=== PATIENT | female | born 1990 | race Caucasian/White ===

== ENCOUNTER 2017-03-25 18:38 | Emergency (ER) | payer SELFPAY ==
[2017-03-25] MEDS ORDERED: ONDANSETRON 4 MG TAB.RAPDIS PO ONE (18:53)
--- NOTE | 2017-03-25 19:07 | ER Document Report ---
ED Medical Screen (RME) - General Chief Complaint: Vaginal Bleeding Stated Complaint: VAGINAL BLEEDING Time Seen by Provider: 03/25/17 18:50 TRAVEL OUTSIDE OF THE [place] IN LAST 30 DAYS: No - HPI Notes: 03/25/17 19:06 Vaginal bleeding vomiting passing out - Related Data Allergies/Adverse Reactions: iodine Allergy (Verified 03/25/17 18:43) latex Allergy (Verified 03/25/17 18:43) Past Medical History Renal/ Medical History: Denies: Hx Peritoneal Dialysis Review of Systems - Review of Systems Gastrointestinal: Nausea, Vomiting -: Yes All other systems reviewed and negative Physical Exam - Vital signs Vitals: Temp Pulse Resp BP Pulse Ox 98.7 F 95 16 124/80 98 03/25/17 18:44 03/25/17 18:44 03/25/17 18:44 03/25/17 18:44 03/25/17 18:44 - Respiratory Respiratory status: No respiratory distress Chest status: Nontender Breath sounds: Normal Chest palpation: Normal Course - Vital Signs Vital signs: Temp Pulse Resp BP Pulse Ox 98.7 F 95 16 124/80 98 03/25/17 18:44 03/25/17 18:44 03/25/17 18:44 03/25/17 18:44 03/25/17 18:44
[2017-03-25 19:16] LABS: ABSOLUTE BASOPHILS # (AUTO) 0.1 10^3/uL (0.0-0.2); ABSOLUTE EOSINOPHILS # (AUTO) 0.3 10^3/uL (0.0-0.6); ABSOLUTE LYMPHOCYTES (AUTO) 2.1 10^3/uL (0.5-4.7); ABSOLUTE MONOCYTES (AUTO) 0.6 10^3/uL (0.1-1.4); ABSOLUTE NEUT (AUTO) 6.6 10^3/uL (1.7-8.2); BASOPHILS % (AUTO) 0.7 % (0-2); EOSINOPHILS % (AUTO) 3.5 % (0-6); HEMOGLOBIN 11.3 g/dL (12.0-15.5); HGB HCT DIFFERENCE -2.1; LYMPHOCYTES % (AUTO) 21.3 % (13-45); MEAN CORPUSCULAR HEMOGLOBIN 21.4 pg (27.0-33.4); MEAN CORPUSCULAR HGB CONC 31.4 g/dL (32.0-36.0); MEAN CORPUSCULAR VOLUME 68 fl (80-97); MONOCYTES % (AUTO) 6.5 % (3-13); RED BLOOD COUNT 5.28 10^6/uL (3.72-5.28); WHITE BLOOD COUNT 9.7 10^3/uL (4.0-10.5)
[2017-03-25] MEDS ORDERED: NORMAL SALINE 1000 ML 1,000 ML IV ONE (19:18)
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
[2017-03-25 19:38] LABS: ALANINE AMINOTRANSFERASE 44 U/L (9-52); ALBUMIN 4.2 g/dL (3.5-5.0); ALKALINE PHOSPHATASE 87 U/L (38-126); ANION GAP 9 (5-19); ASPARTATE AMINO TRANSFERASE 21 U/L (14-36); BILIRUBIN,DIRECT 0.4 mg/dL (0.0-0.4); BILIRUBIN,TOTAL 0.5 mg/dL (0.2-1.3); BLOOD UREA NITROGEN 13 mg/dL (7-20); CALCIUM 9.7 mg/dL (8.4-10.2); CARBON DIOXIDE 25 mmol/L (22-30); CHLORIDE 107 mmol/L (98-107); CREATININE RESULT 0.86 mg/dL (0.52-1.25); GLUCOSE 93 mg/dL (75-110); LIPASE 47.3 U/L (23-300); POTASSIUM 4.3 mmol/L (3.6-5.0); SODIUM 141.3 mmol/L (137-145); TOTAL PROTEIN 7.5 g/dL (6.3-8.2)
[2017-03-25 22:50] VITALS: BP 124/69
== END 2017-03-25 22:49 | disposition home or self-care (01) ==
LOC: ER 18:38
DX: N93.9 Abnormal uterine and vaginal bleeding, unspecified (principal); R10.2 Pelvic and perineal pain; R11.2 Nausea with vomiting, unspecified; Z91.040 Latex allergy status; Z87.42 Personal history of other diseases of the female genital tract; Z90.721 Acquired absence of ovaries, unilateral
CPT/HCPCS: 99284; 86900; 86901; 36415; 84702; 83690; 85025; 80053; S0119; J7030

== ENCOUNTER 2017-11-04 20:08 | Emergency (ER) | payer SELFPAY ==
[2017-11-04 20:58] LABS: ABSOLUTE BASOPHILS # (AUTO) 0.1 10^3/uL (0.0-0.2); ABSOLUTE EOSINOPHILS # (AUTO) 0.3 10^3/uL (0.0-0.6); ABSOLUTE LYMPHOCYTES (AUTO) 2.8 10^3/uL (0.5-4.7); ABSOLUTE MONOCYTES (AUTO) 0.6 10^3/uL (0.1-1.4); ABSOLUTE NEUT (AUTO) 8.8 10^3/uL (1.7-8.2); BASOPHILS % (AUTO) 0.9 % (0-2); EOSINOPHILS % (AUTO) 2.1 % (0-6); HEMATOCRIT 38.4 % (36.0-47.0); HEMOGLOBIN 12.5 g/dL (12.0-15.5); HGB HCT DIFFERENCE -0.9; MEAN CORPUSCULAR HGB CONC 32.6 g/dL (32.0-36.0); MEAN CORPUSCULAR VOLUME 71 fl (80-97); RED BLOOD COUNT 5.43 10^6/uL (3.72-5.28); RED CELL DISTRIBUTION WIDTH 17.8 % (11.5-14.0); WHITE BLOOD COUNT 12.7 10^3/uL (4.0-10.5)
[2017-11-04] MEDS ORDERED: MORPHINE SULFATE 10 MG/ML INJ IV PRN (21:10)
[2017-11-04] MEDS ORDERED: KETOROLAC TROMETHAMINE INJ/PF 30 MG/1 ML SDV IV ONE (21:10)
--- NOTE | 2017-11-04 21:12 | ER Document Report ---
ED General - General Chief Complaint: Abdominal Pain Stated Complaint: ABDOMINAL PAIN Time Seen by Provider: 11/04/17 20:34 Notes: Patient is a 27-year-old female without past medical history, a prior , who presents with 2 hours of right lower abdominal pain as well as right flank pain. Patient states that the symptoms were acute in onset and have been unchanged since that time. He describes the pain as a constant, stabbing, throbbing pain to her lower abdomen and right flank. Nothing improves or worsens the pain. She denies any history of similar symptoms in the past. She has not seen her primary doctor regarding today's concerns. She denies any associated dysuria, fever, vaginal bleeding, vaginal discharge, melena, hematochezia, vomiting, hematemesis, chest pain, shortness of breath, or pleuritic pain. TRAVEL OUTSIDE OF THE [place] IN LAST 30 DAYS: No - Related Data Allergies/Adverse Reactions: iodine Allergy (Verified 11/04/17 20:08) latex Allergy (Verified 11/04/17 20:08) Past Medical History - General Information source: Patient - Social History Smoking Status: Never Smoker Frequency of alcohol use: None Drug Abuse: None Lives with: Spouse/Significant other Family History: CAD, CVA, DM, Hyperlipidemia, Hypertension, Malignancy Patient has suicidal ideation: No Patient has homicidal ideation: No Renal/ Medical History: Reports: Hx Ovarian Cysts. Denies: Hx Peritoneal Dialysis GI Medical History: Reports: Hx Ulcer, Hx Colonoscopy, Hx Endoscopy Musculoskeltal Medical History: Reports Hx Musculoskeletal Deformity, Reports Hx Musculoskeletal Trauma Traumatic Medical History: Reports: Hx Fractures - Clavicle ankle Past Surgical History: Reports: Hx Section, Hx Dilation and Curettage, Hx Genitourinary Surgery - Ovarian cyst removal and partial removal of left ovary, Hx Tonsillectomy - and adenoids - Immunizations Hx Diphtheria, Pertussis, Tetanus Vaccination: Yes Review of Systems - Review of Systems Notes: Constitutional: Negative for fever. HENT: Negative for sore throat. Eyes: Negative for visual changes. Cardiovascular: Negative for chest pain. Respiratory: Negative for shortness of breath. Gastrointestinal: Positive for abdominal pain and nausea Genitourinary: Negative for dysuria. Musculoskeletal: Negative for back pain. Skin: Negative for rash. Neurological: Negative for headaches, weakness or numbness. 10 point ROS negative except as marked above and in HPI. Physical Exam - Vital signs Vitals: Resp Pulse Ox 20 100 11/04/17 20:30 11/04/17 20:30 Interpretation: Normal Notes: PHYSICAL EXAMINATION: GENERAL: Appears mildly uncomfortable but no acute distress HEAD: Atraumatic, normocephalic. EYES: Pupils equal round and reactive to light, extraocular movements intact, sclera anicteric, conjunctiva are normal. ENT: nares patent, oropharynx clear without exudates. Moderately dry mucous membranes. NECK: Normal range of motion, supple without lymphadenopathy LUNGS: Breath sounds clear to auscultation bilaterally and equal. No wheezes rales or rhonchi. HEART: Regular tachycardia without murmurs ABDOMEN: Soft, right lower quadrant as well as right adnexal and suprapubic abdominal tenderness to palpation without rebound or guarding otherwise no localized tenderness, normoactive bowel sounds. No guarding, no rebound. No masses appreciated. : Scant amount of clear vaginal discharge. No cervical motion tenderness. Slight right adnexal tenderness. EXTREMITIES: Normal range of motion, no pitting or edema. No cyanosis. NEUROLOGICAL: No focal neurological deficits. Moves all extremities spontaneously and on command. PSYCH: Slightly anxious SKIN: Warm, Dry, normal turgor, no rashes or lesions noted. Course - Re-evaluation Re-evalutation: 11/04/17 21:11 Patient presents with tachycardia, right flank pain and right lower abdominal pain that is been present for the past 2 hours. Patient's initial heart was markedly elevated at 156 although has improved with pain control. She also appeared somewhat clinically dehydrated on examination. She denied any chest pain, pleuritic pain, dyspnea, or any symptoms to suggest an acute pulmonary embolus. She reports her pain is entirely in her role right lower abdomen as well as her right flank. Differential diagnosis includes acute pyelonephritis of the acuity of onset is atypical for this diagnosis, possible nephrolithiasis although again patient has focal tenderness on palpation of the abdomen which is also atypical for this diagnosis. Ovarian torsion is also in the differential but seems quite unlikely given the dominance of her right flank tenderness. Will proceed with pain control, labs, CT abdomen pelvis with IV contrast and reassess 11/04/17 23:48 CT abdomen pelvis is unremarkable without any evidence of an acute appendicitis , nephrolithiasis, pancreatitis, or any evidence of ovarian inflammation or swelling. Patient's pain has significantly improved. For her improved coming to the upper 90s to low 100s. 11/05/17 00:56 Transvaginal ultrasound was obtained CT abdomen pelvis was unremarkable and patient continued to have lower abdominal pain. This remains unremarkable without any evidence of torsion, cystic masses, or any additional acute findings. Pelvic examination does not show any evidence of cervical motion tenderness to suggest an acute pelvic inflammatory disease. Patient's heart rate has significantly improved now resting between 85 and 88. At this time I have explained the patient at length that the exact etiology of her presentation is uncertain to me at this time. However based on her reassuring evaluation including labs, CT abdomen and pelvis with IV contrast, transvaginal ultrasound, pelvic examination was swabs, and multiple repeated physical examinations I do not believe there is any acute life-threatening etiology to her presentation today particularly given normalization of her vitals, resolution of her pain, and her overall well appearance. I have also explained the patient that given we do not have a clear diagnosis for her presentation today it is critical that she follow-up with her primary care doctor for recheck of her abdomen within the next 24-48 hours. I have also emphasized the significant importance of coming back to the emergency department should she have any new or worsening symptoms again given the uncertainty of the cause of her initial presentation. The patient has verbalized understanding of this and the need to return to the emergency department should anything worsen as well as the need for outpatient follow-up. - Vital Signs Vital signs: Temp Pulse Resp BP Pulse Ox 14 103/68 100 11/05/17 00:33 11/05/17 00:33 11/05/17 00:33 - Laboratory Result Diagrams: 11/04/17 20:36 11/04/17 20:36 Laboratory results interpreted by me: 11/04/17 11/04/17 11/04/17 20:36 20:36 22:28 WBC 12.7 H RBC 5.43 H MCV 71 L MCH 23.0 L RDW 17.8 H Absolute Neutrophils 8.8 H Total Bilirubin 0.1 L Urine Ketones TRACE H - Diagnostic Test Radiology reviewed: Reports reviewed Discharge - Discharge Clinical Impression: Lower abdominal pain, Sinus tachycardia, Right flank pain Condition: Good Disposition: HOME, SELF-CARE Additional Instructions: You have been seen in the Emergency Department (ED) for abdominal pain. Your evaluation did not identify a clear cause of your symptoms but was generally reassuring. Your ultrasound, CT scan, labs, and urine are all normal. Your initial high heart rate improved with IV fluids and pain control. Please follow-up with your primary doctor in the next 24-40 hours for reassessment of your abdomen. Return to the ED if your abdominal pain worsens or fails to improve, you develop bloody vomiting, bloody diarrhea, you are unable to tolerate fluids due to vomiting, fever greater than 101, or other symptoms that concern you.
[2017-11-04 21:17] LABS: ALANINE AMINOTRANSFERASE 31 U/L (9-52); ALBUMIN 4.6 g/dL (3.5-5.0); ALKALINE PHOSPHATASE 99 U/L (38-126); ANION GAP 14 (5-19); ASPARTATE AMINO TRANSFERASE 20 U/L (14-36); BILIRUBIN,DIRECT 0.1 mg/dL (0.0-0.4); BILIRUBIN,TOTAL 0.1 mg/dL (0.2-1.3); BLOOD UREA NITROGEN 13 mg/dL (7-20); CALCIUM 9.9 mg/dL (8.4-10.2); CARBON DIOXIDE 25 mmol/L (22-30); CHLORIDE 103 mmol/L (98-107); CREATININE RESULT 0.91 mg/dL (0.52-1.25); GLUCOSE 91 mg/dL (75-110); LIPASE 44.8 U/L (23-300); POTASSIUM 4.1 mmol/L (3.6-5.0); SODIUM 142.4 mmol/L (137-145); TOTAL PROTEIN 7.9 g/dL (6.3-8.2)
[2017-11-04] MEDS ORDERED: DIPHENHYDRAMINE HCL 50 MG/ML VIAL IV ONE (21:38)
[2017-11-04 22:58] LABS: APPEARANCE,URINE SLIGHTLY-CLOUDY; BILIRUBIN,URINE NEGATIVE (NEGATIVE); GLUCOSE, URINE NEGATIVE (NEGATIVE); KETONES,URINE TRACE mg/dL (NEGATIVE); LEUKOCYTE ESTERASE,URINE NEGATIVE (NEGATIVE); NITRITE,URINE NEGATIVE (NEGATIVE); PROTEIN,URINE NEGATIVE (NEGATIVE); URINE SPECIFIC GRAVITY 1.032; UROBILINOGEN,URINE NEGATIVE mg/dL (<2.0)
[2017-11-04] MEDS ORDERED: NORMAL SALINE 1000 ML 1,000 ML IV ONE ×2 (22:59→23:20)
--- NOTE | 2017-11-04 23:26 | RADIOLOGY REPORT (SQ) ---
EXAM DESCRIPTION: CT ABD/PELVIS WITH IV ONLY CLINICAL HISTORY: 27 years Female, right flank pain, rlq pain COMPARISON: None. TECHNIQUE: 100 mL Isovue-370 IV contrast. This exam was performed according to our departmental dose-optimization program, which includes automated exposure control, adjustment of the mA and/or kV according to patient size and/or use of iterative reconstruction technique. FINDINGS: No acute findings. No significant free fluid. Normal appendix. No bowel obstruction. No hydronephrosis-hydroureter. Inferior chest, liver, gallbladder, pancreas, spleen, renal system, adrenals, gastrointestinal tract, pelvic organs, lymphatics, vasculature, and musculoskeleton appear otherwise unremarkable. IMPRESSION: Normal CT of the abdomen and pelvis.
--- NOTE | 2017-11-05 00:51 | RADIOLOGY REPORT (SQ) ---
EXAM DESCRIPTION: U/S NON OB PEL TV W/DOPPLER CLINICAL HISTORY: 27 years, Female, lower pelvic pain, tachycardia COMPARISON: None. TECHNIQUE: Transvaginal. LIMITATIONS: None. FINDINGS: 10 cm uterus with likely related scar, 1.6 cm endometrial stripe thickness, 3.2 cm cervical length with nabothian cysts, 2.6 cm right ovary, and 3.3 cm left ovary appear otherwise normal size, shape, echotexture, and vascularity. 2.2 cm cystic component of the left ovary is within normal limits; no follow-up imaging recommended (based on Best Practice Guidelines). No significant free fluid. IMPRESSION: No acute findings. 2010 [employer]- All Rights Reserved
[2017-11-05 01:29] VITALS: BP 115/75
--- NOTE | 2017-11-05 08:08 | EKG REPORT ---
SEVERITY:- BORDERLINE ECG - SINUS TACHYCARDIA PROBABLE LEFT ATRIAL ABNORMALITY BORDERLINE ST DEPRESSION, ANTEROLATERAL LEADS : Confirmed by: Siva Almaguer MD 05-Nov-2017 08:08:20
== END 2017-11-05 01:38 | disposition home or self-care (01) ==
LOC: ER 20:08
DX: R10.31 Right lower quadrant pain (principal); R10.813 Right lower quadrant abdominal tenderness; R11.0 Nausea; R00.0 Tachycardia, unspecified; Z91.040 Latex allergy status; Z87.42 Personal history of other diseases of the female genital tract; Z90.721 Acquired absence of ovaries, unilateral
CPT/HCPCS: 93005; 99284; 96361; 96374; 96375; 36415; 87210; 83690; 84703; 85025; 80053; 81001; 87491; 87591; 76830; 93976; 74177; 93010; J1200; J1885; J2270; J7030

== ENCOUNTER 2018-02-19 19:40 | Inpatient (IN) | payer SELFPAY ==
[2018-02-19] MEDS ORDERED: NORMAL SALINE 1000 ML 1,000 ML IV ONE ×2 (21:39→23:22)
[2018-02-19 21:52] LABS: HEMATOCRIT 37.6 % (36.0-47.0); HEMOGLOBIN 11.9 g/dL (12.0-15.5); MEAN CORPUSCULAR HGB CONC 31.6 g/dL (32.0-36.0); MEAN CORPUSCULAR VOLUME 73 fl (80-97); PLATELET COUNT 186 10^3/uL (150-450); RED BLOOD COUNT 5.17 10^6/uL (3.72-5.28); RED CELL DISTRIBUTION WIDTH 17.1 % (11.5-14.0); WHITE BLOOD COUNT 16.2 10^3/uL (4.0-10.5)
[2018-02-19 21:59] LABS: ALANINE AMINOTRANSFERASE 24 U/L (9-52); ALBUMIN 3.6 g/dL (3.5-5.0); ALKALINE PHOSPHATASE 74 U/L (38-126); ANION GAP 12 (5-19); ASPARTATE AMINO TRANSFERASE 15 U/L (14-36); BILIRUBIN,DIRECT 0.1 mg/dL (0.0-0.4); BILIRUBIN,TOTAL 0.2 mg/dL (0.2-1.3); BLOOD UREA NITROGEN 12 mg/dL (7-20); CALCIUM 9.1 mg/dL (8.4-10.2); CARBON DIOXIDE 19 mmol/L (22-30); CHLORIDE 104 mmol/L (98-107); GLUCOSE 90 mg/dL (75-110); POTASSIUM 4.2 mmol/L (3.6-5.0); SODIUM 134.9 mmol/L (137-145); TOTAL PROTEIN 6.6 g/dL (6.3-8.2)
[2018-02-19 22:09] LABS: ABSOLUTE LYMPHOCYTES# (MANUAL) 0.5 10^3/uL (0.5-4.7); ABSOLUTE MONOCYTES # (MANUAL) 0.6 10^3/uL (0.1-1.4); ABSOLUTE NEUTROPHILS# (MANUAL) 15.1 10^3/uL (1.7-8.2); BASOPHILS % (MANUAL) 0 % (0-2); EOSINOPHILS % (MANUAL) 0 % (0-6); LYMPHOCYTES % (MANUAL) 3 % (13-45); MONOCYTES % (MANUAL) 4 % (3-13); SEGMENTED NEUTROPHILS % (MAN) 93 % (42-78); TOTAL CELLS COUNTED 100
[2018-02-19 22:12] LABS: ANISOCYTOSIS 1+; HYPOCHROMASIA SLIGHT; POIKILOCYTOSIS SLIGHT; TOXIC GRANULATION SLIGHT
[2018-02-19 22:13] LABS: PLATELET COMMENT ADEQUATE
[2018-02-19] MEDS ORDERED: DIPHENHYDRAMINE HCL 50 MG/ML VIAL IV ONE (23:22)
[2018-02-19] MEDS ORDERED: METOCLOPRAMIDE HCL INJ/PF 10 MG/2 ML SDV IV ONE (23:22)
--- NOTE | 2018-02-19 23:25 | ER Document Report ---
ED GI/ - General Chief Complaint: Nausea/Vomiting/Diarrhea Stated Complaint: FLU LIKE SYMPTOMS Time Seen by Provider: 02/19/18 23:14 Notes: Patient is a 27-year-old female, A4 at about 12 weeks gestation by last menstrual period, the comes emergency department for chief complaint of nausea, vomiting, diarrhea, fever/chills. She states that symptoms started 2 days ago, she states that all of her family members also have nausea, vomiting, fever, diarrhea. She states she could not stop dry heaving and therefore came to the emergency department. She has cramping in her abdomen and some back pains as well, she denies vaginal bleeding. She has not had an ultrasound yet. She has had C-sections, ovarian cyst removed, she was on Depo-Provera when she became . On PNVs, no other meds. TRAVEL OUTSIDE OF THE [place] IN LAST 30 DAYS: No - Related Data Allergies/Adverse Reactions: iodine Allergy (Verified 02/19/18 20:02) latex Allergy (Verified 02/19/18 20:02) Past Medical History - General Information source: Patient - Social History Smoking Status: Never Smoker Frequency of alcohol use: None Drug Abuse: None Lives with: Family Family History: CAD, CVA, DM, Hyperlipidemia, Hypertension, Malignancy Renal/ Medical History: Reports: Hx Ovarian Cysts. Denies: Hx Peritoneal Dialysis GI Medical History: Reports: Hx Ulcer, Hx Colonoscopy, Hx Endoscopy Musculoskeltal Medical History: Reports Hx Musculoskeletal Deformity, Reports Hx Musculoskeletal Trauma Traumatic Medical History: Reports: Hx Fractures - Clavicle ankle Past Surgical History: Reports: Hx Section, Hx Dilation and Curettage, Hx Genitourinary Surgery - Ovarian cyst removal and partial removal of left ovary, Hx Tonsillectomy - and adenoids - Immunizations Hx Diphtheria, Pertussis, Tetanus Vaccination: Yes Review of Systems - Review of Systems Constitutional: See HPI EENT: No symptoms reported Cardiovascular: No symptoms reported Respiratory: No symptoms reported Gastrointestinal: See HPI Genitourinary: No symptoms reported Female Genitourinary: No symptoms reported Musculoskeletal: No symptoms reported Skin: No symptoms reported Hematologic/Lymphatic: No symptoms reported Neurological/Psychological: No symptoms reported Physical Exam - Vital signs Vitals: Temp Pulse Resp BP Pulse Ox 99.4 F 137 H 22 H 108/63 99 02/19/18 20:01 02/19/18 20:01 02/19/18 20:01 02/19/18 20:01 02/19/18 20:01 Interpretation: Normal - General General appearance: Other - Patient moderately ill-appearing, however she is alert, conversational, cooperative - HEENT Head: Normocephalic, Atraumatic Eyes: Normal Eyelashes: Normal Pupils: PERRL Mucous membranes: Dry Pharynx: Normal Neck: Normal - Respiratory Respiratory status: No respiratory distress Chest status: Nontender Breath sounds: Normal. No: Decreased air movement, Wheezing Chest palpation: Normal - Cardiovascular Rhythm: Regular, Tachycardia Heart sounds: Normal auscultation, S1 appreciated, S2 appreciated Murmur: No Normal capillary refill: Yes - Abdominal Inspection: Normal Distension: No distension Bowel sounds: Normal Tenderness: Tender - Minimal generalized tenderness, nonspecific, no guarding, no rigidity, no rebound tenderness Organomegaly: No organomegaly - Back Back: Normal, Nontender. No: Tender - Extremities General upper extremity: Normal inspection, Nontender, Normal strength, Normal temperature General lower extremity: Normal inspection, Nontender, Normal strength, Normal temperature. No: Edema - Neurological Neuro grossly intact: Yes Cognition: Normal Orientation: AAOx4 [place] Coma Scale Eye Opening: Spontaneous [place] Coma Scale Verbal: Oriented [place] Coma Scale Motor: Obeys Commands [place] Coma Scale Total: 15 Speech: Normal Motor strength normal: LUE, RUE, LLE, RLE Sensory: Normal - Psychological Associated symptoms: Normal affect, Normal mood - Skin Skin Temperature: Warm Skin Moisture: Dry Skin Color: Pale Course - Re-evaluation Re-evalutation: Patient with dry mucous membranes, tachycardia, moderately ill-appearing. Abdomen is still soft, no CVA tenderness. She is tachycardic, giving IV fluids , nausea medication. Patient is Ibrahima been treated for nausea once, she states she still very nauseated. CBC shows leukocytosis with elevation of neutrophils, nonspecific with vomiting and diarrhea. Chemistry shows low bicarbonate at 19, otherwise unremarkable, urinalysis shows 80 ketones consistent with dehydration. After additional medication patient sitting she does feel improved, she wants to try to drink something, however after she did she vomited. Patient still tachycardic after 2 L of normal saline, hCG is elevated as expected, ultrasound showing IUP at 13 weeks 1 day, heart rate is elevated. Suspect heart rate is elevated because of mom's dehydration and vomiting. Because patient has had intractable vomiting, persistent tachycardia, and she is very dehydrated, discussed with patient, will discuss with [facility] for potential admission. Patient states agreement with plan. Discussed with Dr. Dia, [facility], patient will be admitted to [facility] service. - Vital Signs Vital signs: Temp Pulse Resp BP Pulse Ox 99.4 F 137 H 26 H 106/48 L 97 02/19/18 20:01 02/19/18 20:01 02/20/18 03:01 02/20/18 03:01 02/20/18 03:01 - Laboratory Result Diagrams: 02/19/18 18:59 02/19/18 18:59 Laboratory results interpreted by me: 02/19/18 02/19/18 02/19/18 18:59 18:59 18:59 WBC 16.2 H Hgb 11.9 L MCV 73 L MCH 23.0 L MCHC 31.6 L RDW 17.1 H Seg Neuts % (Manual) 93 H Lymphocytes % (Manual) 3 L Abs Neuts (Manual) 15.1 H Sodium 134.9 L Carbon Dioxide 19 L Serum HCG, Qual POSITIVE H Beta HCG, Quant Urine Ketones Urine Ascorbic Acid 02/19/18 02/20/18 18:59 00:00 WBC Hgb MCV MCH MCHC RDW Seg Neuts % (Manual) Lymphocytes % (Manual) Abs Neuts (Manual) Sodium Carbon Dioxide Serum HCG, Qual Beta HCG, Quant 18176.00 H Urine Ketones 80 H Urine Ascorbic Acid 40 H Discharge - Discharge Clinical Impression: Dehydration, Nausea vomiting and diarrhea Intractable vomiting Qualifiers: Vomiting type: unspecified Nausea presence: with nausea Qualified Code(s): R11.2 - Nausea with vomiting, unspecified Condition: Stable Disposition: ADMITTED INPATIENT Admitting Provider: [facility] Admitted: Labor and Delivery
--- NOTE | 2018-02-20 00:31 | RADIOLOGY REPORT (SQ) ---
EXAM DESCRIPTION: U/S [id number] TRNABD 1GES W/ODOP CLINICAL HISTORY: 27 years Female, abd/pelvic pain, + HCG LMP of 11/19/2017 COMPARISON: None. TECHNIQUE: Complete first trimester obstetrical ultrasound with transabdominal and transvaginal imaging. FINDINGS: The uterus measures 15.1 x 10.3 x 9.2 cm. Cervical length is 3.7 cm and closed. A single intrauterine gestation is identified with a crown-rump length of 6.95 cm compatible with an estimated gestational age of 13 weeks, 1 day. heart rate of 192 beats per minute. Gestational sac is a relatively normal appearance. No free pelvic fluid. No large adnexal masses. The ovaries are not identified. IMPRESSION: 1. Single live intrauterine with estimated gestational age of 13 weeks, 1 day. Estimated delivery date of 08/26/2018 by ultrasound criteria. 2. The fetus demonstrates tachycardia at 192 beats for minute. Obstetrical consultation and close continued follow-up recommended.
[2018-02-20 00:33] LABS: LIPASE 50.5 U/L (23-300)
[2018-02-20 00:34] LABS: APPEARANCE,URINE SLIGHTLY-CLOUDY; BILIRUBIN,URINE NEGATIVE (NEGATIVE); COLOR,URINE YELLOW; GLUCOSE, URINE NEGATIVE (NEGATIVE); KETONES,URINE 80 mg/dL (NEGATIVE); LEUKOCYTE ESTERASE,URINE NEGATIVE (NEGATIVE); NITRITE,URINE NEGATIVE (NEGATIVE); PROTEIN,URINE NEGATIVE (NEGATIVE); URINE SPECIFIC GRAVITY 1.027; UROBILINOGEN,URINE NEGATIVE mg/dL (<2.0)
[2018-02-20] MEDS ORDERED: NORMAL SALINE 1000 ML 1,000 ML IV ONE (01:25)
[2018-02-20] MEDS ORDERED: METOCLOPRAMIDE HCL INJ/PF 10 MG/2 ML SDV IV ONE (01:26)
[2018-02-20] MEDS ORDERED: DIPHENHYDRAMINE HCL 50 MG/ML VIAL IV ONE (01:26)
[2018-02-20] MEDS ORDERED: RINGERS SOLUTION,LACTATED 1,000 ML IV PRN (09:27)
--- NOTE | 2018-02-20 10:49 | PDOC H&P ---
History of Present Illness Admission Date/PCP: 02/20/18 01:52 Patient complains of: nausea/vomiting History of Present Illness: RONNY MEDEIROS is a 27 year old female @ approximately 13 wks EGA here with c /o n/v x 2 days. Had + sick contacts at home with both daughters and experiencing similar illness. Indicates this is scheduled for termination on Saturday. this is her 8th with 2 live births. Past Medical History Cardiac Medical History: Reports: None Pulmonary Medical History: Reports: None EENT Medical History: Reports: None Neurological Medical History: Reports: None Endocrine Medical History: Reports: None Renal/ Medical History: Reports: None Malignancy Medical History: Reports: None GI Medical History: Reports: Other - some type of bowel inflammation that pt indicates necessitated several colo Musculoskeltal Medical History: Reports: None Skin Medical History: Reports: None Traumatic Medical History: Reports: None Infectious Medical History: Reports: None Past Surgical History Past Surgical History: Reports: Section, Tonsillectomy - and adenoids, Other - colonoscopy x 3. "uvula shortened" Social History Information Source: Patient Lives with: Family Smoking Status: Never Smoker Drugs: None - Advance Directive Resuscitation Status: Full Code Family History Family History: CAD, CVA, DM, Hyperlipidemia, Hypertension, Malignancy Parental Family History Reviewed: Yes Children Family History Reviewed: Yes Sibling(s) Family History Reviewed.: Yes Medication/Allergy Home Medications: Prenat 115/Iron Fum/Folic/Dss [ 19 Tablet] 1 each PO DAILY 02/20/18 Allergies/Adverse Reactions: obed Allergy (Verified 02/20/18 09:40) iodine Allergy (Verified 02/19/18 20:02) latex Allergy (Verified 02/19/18 20:02) Review of Systems Constitutional: PRESENT: as per HPI Physical Exam - Physical Exam Vital Signs: Temp Pulse Resp BP Pulse Ox 98.9 F 137 H 20 94/57 L 97 02/20/18 08:18 02/19/18 20:01 02/20/18 08:01 02/20/18 08:01 02/20/18 08:01 General appearance: PRESENT: no acute distress, cooperative, mild distress Cardiovascular exam: PRESENT: tachycardia - mild Pulses: PRESENT: normal radial pulses GI/Abdominal exam: PRESENT: soft Neurological exam: PRESENT: alert, awake Result Impressions: Obstetrics Ultrasound 02/19/18 23:22 IMPRESSION: 1. Single live intrauterine with estimated gestational age of 13 weeks, 1 day. Estimated delivery date of 08/26/2018 by ultrasound criteria. 2. The fetus demonstrates tachycardia at 192 beats for minute. Obstetrical consultation and close continued follow-up recommended. Assessment & Plan - Diagnosis (1) Qualifiers: Weeks of gestation: 13 weeks Qualified Code(s): Z3A.13 - 13 weeks gestation of Is this a current diagnosis for this admission?: Yes (2) Dehydration Is this a current diagnosis for this admission?: Yes (3) Intractable vomiting Qualifiers: Vomiting type: unspecified Nausea presence: with nausea Qualified Code(s) : R11.2 - Nausea with vomiting, unspecified (4) Nausea vomiting and diarrhea Is this a current diagnosis for this admission?: Yes - Time Time Spent: 30 to 50 Minutes Critical Time spent with patient: Less than 15 minutes Anticipated discharge: Home Within: within 24 hours - Inpatient Certification Based on my medical assessment, after consideration of the patient's comorbidities, presenting symptoms, or acuity I expect that the services needed warrant INPATIENT care.: Yes I certify that my determination is in accordance with my understanding of Medicare's requirements for reasonable and necessary INPATIENT services [42 CFR 412.3e].: Yes Medical Necessity: Need For IV Fluids
[2018-02-20] MEDS ORDERED: PROMETHAZINE HCL 25 MG SUPP.RECT PR PRN (10:50)
[2018-02-20 11:56] VITALS: BP 111/70
[2018-02-20 12:14] LABS: FREE T3 3.48 pg/mL (2.77-5.27); FREE T4 (FREE THYROXINE) 1.07 ng/dL (0.78-2.19)
[2018-02-20 12:27] LABS: THYROID STIMULATING HORMONE 0.34 uIU/mL (0.47-4.68)
--- NOTE | 2018-02-20 14:03 | Discharge Summary ---
Discharge Summary (SDC) - Discharge Final Diagnosis: gastroenteritis Discharge Date: 02/20/18 Condition: Stable Treatment or Instructions: feeling better after fluids and antiemetics. No further vomiting. tolerating a bland diet at this time. Prescriptions: Promethazine HCl [Phenergan 25 mg Supp.rect] 25 mg MO Q8HP PRN #20 supp.rect PRN Reason: Discharge Diet: As Tolerated Discharge Activity: Activity As Tolerated Home Care Assistance: None Needed Report the Following to Your Physician Immediately: Shortness of Breath, Nausea , Vomiting, Fever over 101 Degrees - to keep appointment as planned for .
== END 2018-02-20 14:38 | disposition home or self-care (01) | DRG 781 ==
LOC: ER 19:40 → EH 02-20 01:52 → 2N 02-20 08:42
PROVIDERS: ADMIT Obstetrics & Gynecology Gynecology; ATTEND Obstetrics & Gynecology Gynecology
DX: O26.891 Other specified pregnancy related conditions, first trimester (principal); E86.0 Dehydration; K52.9 Noninfective gastroenteritis and colitis, unspecified; O26.21 Pregnancy care for patient with recurrent pregnancy loss, first trimester; R11.2 Nausea with vomiting, unspecified; Z3A.13 13 weeks gestation of pregnancy
CPT/HCPCS: 36415; 76801; 80053; 81001; 83690; 84439; 84443; 84481; 84702; 84703; 85025; 96361; 96374; 96375; 96376; 99285; J1200; J2765; J7030; J7120

== ENCOUNTER 2018-09-01 18:51 | Emergency (ER) | payer SELFPAY ==
[2018-09-01] MEDS ORDERED: NORMAL SALINE 1000 ML 1,000 ML IV ONE (19:59)
--- NOTE | 2018-09-01 20:04 | ER Document Report ---
ED General - General Chief Complaint: Cough Stated Complaint: COUGH Time Seen by Provider: 09/01/18 19:30 Mode of Arrival: Ambulatory Information source: Patient Notes: 28-year-old female presents to ED for complaint of vaginal plane bad of pain chest cough with fever urinary symptoms vaginal discharge and abdominal pain. She states she is aching all over. She states she had a fever of 104 today but did not take any Tylenol. Her temperature was afebrile in the emergency room but she does have a pulse of 120. TRAVEL OUTSIDE OF THE [place] IN LAST 30 DAYS: No - HPI Onset: Other Onset/Duration: Gradual - 3 days Quality of pain: Achy, Sharp Severity: Moderate Associated symptoms: Body/muscle aches, Nonproductive cough, Fever, Rhinnorhea, Sinus pain/drainage, Shortness of breath Exacerbated by: Denies Relieved by: Denies Similar symptoms previously: Yes Recently seen / treated by doctor: No - Related Data Allergies/Adverse Reactions: obed Allergy (Verified 02/20/18 09:40) iodine Allergy (Verified 02/19/18 20:02) latex Allergy (Verified 02/19/18 20:02) Past Medical History - General Information source: Patient - Social History Smoking Status: Never Smoker Cigarette use (# per day): No Chew tobacco use (# tins/day): No Smoking Education Provided: No Frequency of alcohol use: None Drug Abuse: None Lives with: Family Family History: CAD, CVA, DM, Hyperlipidemia, Hypertension, Malignancy Patient has suicidal ideation: No Patient has homicidal ideation: No - Past Medical History Cardiac Medical History: Reports: None Pulmonary Medical History: Reports: None EENT Medical History: Reports: None Neurological Medical History: Reports: None Endocrine Medical History: Reports: None Renal/ Medical History: Reports: Hx Ovarian Cysts Malignancy Medical History: Reports: None GI Medical History: Reports: Hx Ulcer, Hx Colonoscopy, Hx Endoscopy Musculoskeletal Medical History: Reports Hx Musculoskeletal Deformity, Reports Hx Musculoskeletal Trauma Skin Medical History: Reports None Psychiatric Medical History: Reports: None Traumatic Medical History: Reports: Hx Fractures - Clavicle ankle Infectious Medical History: Reports: None Past Surgical History: Reports: Hx Section - 2, Hx Dilation and Curettage, Hx Genitourinary Surgery - Ovarian cyst removal and partial removal of left ovary, Hx Oral Surgery - Dental, Hx Tonsillectomy - and adenoids, Other - colonoscopy x 3. "uvula shortened" - Immunizations Immunizations up to date: Yes Hx Diphtheria, Pertussis, Tetanus Vaccination: Yes Review of Systems - Review of Systems Constitutional: Chills, Fever, Recent illness EENT: No symptoms reported, Nose discharge Cardiovascular: Dizziness, Other - Tachycardia Respiratory: Cough Genitourinary: Burning, Dysuria, Urgency Female Genitourinary: No symptoms reported, Other - Dental pain Musculoskeletal: Muscle pain, Muscle stiffness Skin: No symptoms reported Hematologic/Lymphatic: No symptoms reported Neurological/Psychological: No symptoms reported -: Yes All other systems reviewed and negative Physical Exam - Vital signs Vitals: Temp Pulse Resp BP Pulse Ox 98.0 F 138 H 20 131/70 H 100 09/01/18 19:12 09/01/18 19:12 09/01/18 19:12 09/01/18 19:12 09/01/18 19:12 Interpretation: Tachycardic - General General appearance: Appears well, Alert - HEENT Head: Normocephalic, Atraumatic Eyes: Normal Pupils: PERRL - Respiratory Respiratory status: No respiratory distress Chest status: Nontender Breath sounds: Nonproductive cough Chest palpation: Normal - Cardiovascular Rhythm: Regular Heart sounds: Normal auscultation Murmur: No - Abdominal Inspection: Normal Distension: No distension Bowel sounds: Normal Tenderness: Nontender Organomegaly: No organomegaly - Back Back: Normal, Nontender - Extremities General upper extremity: Normal inspection, Nontender, Normal color, Normal ROM , Normal temperature General lower extremity: Normal inspection, Nontender, Normal color, Normal ROM , Normal temperature, Normal weight bearing. No: Jordyn's sign - Neurological Neuro grossly intact: Yes Cognition: Normal Orientation: AAOx4 Gibson Coma Scale Eye Opening: Spontaneous Harper Coma Scale Verbal: Oriented Harper Coma Scale Motor: Obeys Commands Gibson Coma Scale Total: 15 Speech: Normal Motor strength normal: LUE, RUE, LLE, RLE Sensory: Normal - Psychological Associated symptoms: Normal affect, Normal mood - Skin Skin Temperature: Warm Skin Moisture: Dry Skin Color: Normal Course - Re-evaluation Re-evalutation: 09/02/18 02:07 Patient was treated with IV fluids for her nausea and vomiting as well as IV Zofran. She was treated with Flagyl for her bacterial vaginosis, she was treated with Diflucan for her vaginal yeast infection and was discharged home with Zofran. Patient instructed to follow-up with her primary doctor. Patient was was feeling much better after her IV fluids and Zofran. - Vital Signs Vital signs: Temp Pulse Resp BP Pulse Ox 98.2 F 100 14 138/77 H 100 09/01/18 23:07 09/01/18 23:07 09/01/18 23:07 09/01/18 23:07 09/01/18 23:07 - Laboratory Result Diagrams: 09/01/18 20:05 09/01/18 20:05 Laboratory results interpreted by me: 09/01/18 09/01/18 20:05 20:05 Hgb 10.0 L Hct 32.0 L MCV 63 L MCH 19.7 L MCHC 31.1 L RDW 19.9 H Ur Leukocyte Esterase TRACE H Urine Ascorbic Acid 20 H Discharge - Discharge Clinical Impression: Viral respiratory illness, Vaginal yeast infection, Bacterial vaginosis Nausea & vomiting Qualifiers: Vomiting type: unspecified Vomiting Intractability: non-intractable Qualified Code(s): R11.2 - Nausea with vomiting, unspecified Condition: Stable Disposition: HOME, SELF-CARE Additional Instructions: VAGINITIS: Your exam shows that you have vaginitis, a vaginal infection. The infection can be caused by a many different organisms, including trichomonas or Gardnerella. The usual symptoms are vaginal irritation and discharge. The treatment is usually antibiotics such as Flagyl. Laboratory tests can determine which germ is responsible. Use the medication as prescribed. Because this infection can be transmitted sexually, your sexual partner may need to be checked and treated also. If your physician has not discussed this with you, please check before resuming sexual relations. If a culture shows gonorrhea or chlamydia, the infection must be reported to the health department. Call the doctor if you develop pelvic pain, fever, or problems with urination, or if you don't improve as expected. VAGINOSIS, BACTERIAL: Your exam shows you have bacterial vaginosis. This condition is due to an overgrowth of bacteria in the vagina. Symptoms may include vaginal itching or pain, a smelly discharge, and sometimes burning with urination. Normally this is not transmitted by sexual contact. Vaginosis can be treated with oral or topical antibiotics. Metronidazole ( Flagyl) pills are usually effective. Topical vaginal creams include Cleocin and Metro-Gel. You should avoid sexual contact until your symptoms are all better. Call the doctor if you develop pelvic pain, fever, or problems with urination, or if you don't improve as expected. VAGINAL YEAST INFECTION: You have evidence of a yeast infection -- called "salvador." A vaginal yeast infection often causes itching and discharge. While not dangerous, it can be very unpleasant. A yeast infection often follows the use of powerful antibiotics. It is more likely to occur in diabetics. The treatment now is usually a single pill of Diflucan, but also an antifungal cream or suppository may be used for a few days. You do not need to avoid sexual intercourse. Recurrences are common. You can make a recurrence less likely by wearing cotton underwear and avoiding tight clothing. For mild recurrences, you can try [id number] creams or suppositories that are made specifically for yeast. If the symptoms do not resolve, you should follow up for re-examination. Sometimes treatment of the sexual partner is necessary if infections are recurrent. Upper Respiratory Illness You have a viral infection of the respiratory passages -- a "cold." This common infection causes nasal congestion, drainage, and often sore throat and cough. It is caused by a virus and is highly contagious. The disease usually lasts a week or more, though the worst symptoms are usually over in 3 or 4 days. There is no "cure" for the viral infection -- it must run its course. If there is a complication, such as bacterial infection in the nose, sinuses, middle ear, or bronchial tubes, antibiotics may be required, but antibiotics won 't affect the virus. If you smoke, you should STOP!! Drink plenty of fluids. A humidifier may help. An expectorant medication or decongestant may make you more comfortable. Use acetaminophen or ibuprofen for fever or aches. See the doctor if fever persists over two or three days, if there is any significant worsening of your symptoms, or if you simply fail to improve as expected. VOMITING: Vomiting (or nausea without vomiting) can be caused by many other different problems. It can mean that something's wrong with the stomach, such as ulcers or inflammation or the intestinal tract, such as appendicitis. But it can also be a symptom of a problem that has nothing to do with the stomach or intestines. Vomiting is common with severe headaches, earaches, tonsillitis, and kidney infections, etc. We see it with pneumonia or heart attacks. Drugs can cause nausea and vomiting. Many abdominal problems cause vomiting; for example, gallstones, kidney stones, pancreatitis, and intestinal obstruction ( blocked bowels). In most cases, curing the vomiting depends on fixing the problem that caused it. For temporary relief, we may use an anti-nausea medicine. For home use, we can prescribe suppositories, chewable pills, pills that dissolve in the mouth, or liquid anti-nausea drugs. If the vomiting seems to be caused by a problem in the stomach, acid-suppressing drugs may be prescribed as well. It's important to avoid dehydration. Sip small amounts of clear liquids ( soft drinks, tea, broth, etc) . Try to take fluids frequently even if you are vomiting to prevent dehydration. Take increasing amounts of fluid and when liquids are being consumed successfully, advance to small amounts of bland food (toast, soups, mashed potatoes, etc.) until you are able to resume a regular diet. Avoid aspirin, tobacco, and alcohol. If the vomiting worsens, if the problem that's making you vomit worsens, or if there's evidence of bleeding in the stomach (such as black, tarry stool, or bloody or black vomit), you should return immediately. Also, return if abdominal pain worsens or becomes localized to one area or you develop high fever. Call your doctor if you aren't improved in 24 hours. VIRAL SYNDROME: The physician has diagnosed a viral infection. Viruses not only cause "colds," but can cause many different symptoms including generalized aching, fever, headache, cough, diarrhea, nausea, vomiting, and fatigue. The treatment, for the most part, is simply relief of symptoms. This means that antibiotics are usually not given. Rest, fluids, pain medications and, occasionally, medication for the specific symptoms that are most bothersome will be prescribed. Use good handwashing to avoid passing the virus to others. Shared toys should be cleaned with disinfectant. Clean the toilets, sinks, and counter surfaces in bathrooms. Launder clothing in hot water. Contact the physician if you develop any new or unusual symptoms such as severe headache, stiff neck, high fever, chest pain, productive cough, or shortness of breath. You should be rechecked if you don't see marked improvement within seven to 10 days. INTRAVENOUS (I V) FLUIDS: As part of your care today, you received intravenous (IV) fluids. IV fluids are administered to patients who are dehydrated or to those who have certain chemical (electrolyte) abnormalities that need correcting. ANTINAUSEA MEDICATION: You have been given a medication to suppress nausea and vomiting. This type of medication can be given as a shot, pill, or suppository. It will usually last for many hours. Pills and shots usually last six to eight hours. For the typical illness, only one or two doses of the medication may be necessary. Mild lightheadedness may occur. This type of medicine can cause drowsiness. Do not drive or operate dangerous machinery while under its influence. Do not mix with alcohol. See your doctor at once if you have muscle spasms or tightness, or uncontrollable motions (particularly of the neck, mouth, or jaw). Persistent vomiting or severe lightheadedness should also be evaluated by the physician. METRONIDAZOLE: Metronidazole (Flagyl) has been prescribed. This medication is used to kill a type of bacteria called anaerobes, and protozoan parasites such as trichomonas and Giardia. Flagyl often causes a metallic taste in the mouth and mild nausea. Do not use alcohol in any form with Flagyl (including alcohol in medication elixirs). Flagyl interacts with alcohol to cause flushing, palpitations, headache, stomach cramps, and vomiting. Do not use Flagyl if you are taking Antabuse (disulfiram). Call the doctor at once if you develop rash, shortness of breath, itching, or lightheadedness. FLUCONAZOLE: Fluconazole (Diflucan) is an antifungal drug. It is useful for serious fungal infections, but is also excellent for oral or vaginal yeast infections. Diflucan interacts with some medicines. This is a concern if you are taking anticoagulants (such as Coumadin), phenytoin (Dilantin), cyclosporin, or oral hypoglycemics (such as tolbutamide, Orinase, glipizide, Glucotrol, glyburide, DiaBeta, Glynase, and Micronase). Be sure the doctor knows if you are taking one of these medicines. We don't know how Diflucan affects . If you are planning to become , discuss this with your doctor. Diflucan has few side effects. Minor side effects may include nausea, headache, or diarrhea. Call the doctor if you develop a skin rash, shortness of breath, or other new symptoms. FOLLOW-UP CARE: If you have been referred to a physician for follow-up care, call the physician s office for an appointment as you were instructed or within the next two days. If you experience worsening or a significant change in your symptoms, notify the physician immediately or return to the Emergency Department at any time for re-evaluation. Prescriptions: Ondansetron [Zofran Odt 4 mg Tablet] 1 tab PO Q6H #15 tab.rapdis Forms: Elevated Blood Pressure
[2018-09-01 20:33] LABS: MEAN CORPUSCULAR HEMOGLOBIN 19.7 pg (27.0-33.4); MEAN CORPUSCULAR HGB CONC 31.1 g/dL (32.0-36.0); PLATELET COUNT 244 10^3/uL (150-450); RED BLOOD COUNT 5.05 10^6/uL (3.72-5.28); RED CELL DISTRIBUTION WIDTH 19.9 % (11.5-14.0); WHITE BLOOD COUNT 10.2 10^3/uL (4.0-10.5)
[2018-09-01 20:37] LABS: APPEARANCE,URINE SLIGHTLY-CLOUDY; BILIRUBIN,URINE NEGATIVE (NEGATIVE); COLOR,URINE YELLOW; GLUCOSE, URINE NEGATIVE (NEGATIVE); KETONES,URINE NEGATIVE (NEGATIVE); LEUKOCYTE ESTERASE,URINE TRACE (NEGATIVE); NITRITE,URINE NEGATIVE (NEGATIVE); PROTEIN,URINE NEGATIVE (NEGATIVE); URINE SPECIFIC GRAVITY 1.021; UROBILINOGEN,URINE NEGATIVE mg/dL (<2.0)
--- NOTE | 2018-09-01 20:38 | RADIOLOGY REPORT (SQ) ---
EXAM DESCRIPTION: CHEST 2 VIEWS COMPLETED DATE/TIME: 09/01/2018 8:29 pm REASON FOR STUDY: cough congestion fever COMPARISON: None. EXAM PARAMETERS: NUMBER OF VIEWS: two views TECHNIQUE: Digital Frontal and Lateral radiographic views of the chest acquired. RADIATION DOSE: NA LIMITATIONS: none FINDINGS: LUNGS AND PLEURA: No opacities, masses or pneumothorax. No pleural effusion. MEDIASTINUM AND HILAR STRUCTURES: No masses or contour abnormalities. HEART AND VASCULAR STRUCTURES: Heart normal size. No evidence for failure. BONES: No acute findings. HARDWARE: None in the chest. OTHER: No other significant finding. IMPRESSION: NO ACUTE RADIOGRAPHIC FINDING IN THE CHEST. TECHNICAL DOCUMENTATION: JOB ID: [id number] [email or web address]- All Rights Reserved Reading location - IP/workstation name: [email or web address]
[2018-09-01] MEDS ORDERED: ONDANSETRON HCL INJ/PF 4 MG/2 ML SDV IV ONE (20:44)
[2018-09-01 20:56] LABS: ALANINE AMINOTRANSFERASE 21 U/L (9-52); ALBUMIN 3.7 g/dL (3.5-5.0); ALKALINE PHOSPHATASE 82 U/L (38-126); ANION GAP 10 (5-19); ASPARTATE AMINO TRANSFERASE 16 U/L (14-36); BILIRUBIN,DIRECT 0.2 mg/dL (0.0-0.4); BILIRUBIN,TOTAL 0.3 mg/dL (0.2-1.3); BLOOD UREA NITROGEN 15 mg/dL (7-20); CALCIUM 8.8 mg/dL (8.4-10.2); CARBON DIOXIDE 28 mmol/L (22-30); CHLORIDE 102 mmol/L (98-107); GLUCOSE 101 mg/dL (75-110); POTASSIUM 4.1 mmol/L (3.6-5.0); SODIUM 139.9 mmol/L (137-145); TOTAL PROTEIN 6.8 g/dL (6.3-8.2)
[2018-09-01 20:58] LABS: BACTERIA (WET MOUNT) 4+ BACTERIA SEEN; EPITHELIALS (WET MOUNT) 3+ EPITHELIALS SEEN; T.VAGINALIS (WET MOUNT) NO TRICHOMONAS SEEN; WBCS (WET MOUNT) 2+ WBCS SEEN; YEAST (WET MOUNT) YEAST SEEN
[2018-09-01 21:04] LABS: ABSOLUTE LYMPHOCYTES# (MANUAL) 2.7 10^3/uL (0.5-4.7); ABSOLUTE MONOCYTES # (MANUAL) 0.4 10^3/uL (0.1-1.4); ABSOLUTE NEUTROPHILS# (MANUAL) 6.6 10^3/uL (1.7-8.2); BASOPHILS % (MANUAL) 0 % (0-2); EOSINOPHILS % (MANUAL) 5 % (0-6); LYMPHOCYTES % (MANUAL) 26 % (13-45); MONOCYTES % (MANUAL) 4 % (3-13); SEGMENTED NEUTROPHILS % (MAN) 65 % (42-78); TOTAL CELLS COUNTED 100
[2018-09-01 21:06] LABS: ANISOCYTOSIS 2+; HYPOCHROMASIA 2+; OVALOCYTES 1+; PLATELET COMMENT ADEQUATE; PLATELET GIANT PRESENT; POIKILOCYTOSIS 1+; POLYCHROMASIA SLIGHT
[2018-09-01 21:07] LABS: MEAN CORPUSCULAR VOLUME 63 fl (80-97)
[2018-09-01 21:13] LABS: A TYPE INFLUENZA AG NEGATIVE (NEGATIVE); B INFLUENZA AG NEGATIVE (NEGATIVE)
[2018-09-01] MEDS ORDERED: METRONIDAZOLE 500 MG TABLET PO ONE (21:20)
[2018-09-01 22:17] LABS: CHLAM PCR NOT DETECTED (NOT DETECT); GON PCR NOT DETECTED (NOT DETECT)
[2018-09-01] MEDS ORDERED: FLUCONAZOLE 100 MG TABLET PO ONE (22:35)
[2018-09-01] MEDS ORDERED: ONDANSETRON ODT 4 MG TAB (6 TAB/ER DISP) PO PRN (22:40)
[2018-09-01 23:10] VITALS: BP 138/77
[2018-09-02 14:52] LABS: PATH REVIEW PATHOLOGIST REVIEWED
== END 2018-09-01 23:11 | disposition home or self-care (01) ==
LOC: ER 18:51
DX: N76.0 Acute vaginitis (principal); B96.89 Other specified bacterial agents as the cause of diseases classified elsewhere; B37.3 Candidiasis of vulva and vagina; J06.9 Acute upper respiratory infection, unspecified; R11.2 Nausea with vomiting, unspecified; M79.10 Myalgia, unspecified site; R05 Cough; R50.9 Fever, unspecified; Z91.040 Latex allergy status
CPT/HCPCS: 99284; 96361; 96374; 36415; 87210; 84703; 85025; 80053; 81001; 87491; 87591; 87804; 71046; J2405; J7030

== ENCOUNTER 2018-11-21 21:17 | Inpatient (IN) | payer SELFPAY ==
[2018-11-21] MEDS ORDERED: ONDANSETRON HCL INJ/PF 4 MG/2 ML SDV IV ONE (22:43)
--- NOTE | 2018-11-21 22:47 | ER Document Report ---
ED General - General Chief Complaint: Chest Pain Stated Complaint: VOMITING,CHEST PAIN Time Seen by Provider: 11/21/18 22:35 Notes: Patient is a 28-year-old female who presents with severe vomiting diarrhea. She says multiple people in her family have had the symptoms. She said for 3 days. She says her and her 2 kids all have the symptoms. She says that he got after being in contact with her brother. Her brother is a pilot [employer] in the . Her brother started becoming sick iafter getting home from being deployed. She says her brother was in a few different countries in [place] and then was in [place] and [place] and then came home. She said he was not in [place]. She said today she was vomiting so much that she passed out and fell hit her head. Nurses that the patient had a little bit of amnesia since arriving here. Patient complains of some pain in her upper abdomen radiating into her chest. She says that she seen just a few small flecks of blood in her emesis. She is seeing a small amount of occasional blood in her diarrhea. She has no chronic medical problems. She is otherwise healthy. TRAVEL OUTSIDE OF THE [place] IN LAST 30 DAYS: No - Related Data Allergies/Adverse Reactions: obed Allergy (Verified 11/22/18 01:30) iodine Allergy (Verified 11/22/18 01:30) latex Allergy (Verified 11/22/18 01:30) Past Medical History - Social History Smoking Status: Never Smoker Frequency of alcohol use: None Drug Abuse: None Family History: CAD, CVA, DM, Hyperlipidemia, Hypertension, Malignancy Renal/ Medical History: Reports: Hx Ovarian Cysts. Denies: Hx Peritoneal Dialysis GI Medical History: Reports: Hx Ulcer, Hx Colonoscopy, Hx Endoscopy Musculoskeletal Medical History: Reports Hx Musculoskeletal Deformity, Reports Hx Musculoskeletal Trauma Traumatic Medical History: Reports: Hx Fractures - Clavicle ankle Past Surgical History: Reports: Hx Section - 2, Hx Dilation and Curettage, Hx Genitourinary Surgery - Ovarian cyst removal and partial removal of left ovary, Hx Oral Surgery - Dental, Hx Tonsillectomy - and adenoids, Other - colonoscopy x 3. "uvula shortened" - Immunizations Immunizations up to date: Yes Hx Diphtheria, Pertussis, Tetanus Vaccination: Yes Review of Systems - Review of Systems Notes: My Normal Review Basic REVIEW OF SYSTEMS: CONSTITUTIONAL : Denies fever, chills, or sweats. Denies recent illness. EENT: Denies eye, ear, throat, or mouth pain or symptoms. Denies nasal or sinus congestion. CARDIOVASCULAR: Pain at the chest. RESPIRATORY: Denies cough, cold, or chest congestion. Denies shortness of breath, difficulty breathing, or wheezing. GASTROINTESTINAL: Abdominal pain. Vomiting and diarrhea. GENITOURINARY: Denies difficulty urinating, painful urination, burning, frequency, or blood in urine. MUSCULOSKELETAL: Denies neck or back pain or joint pain or swelling. SKIN: Denies rash or skin lesions. NEUROLOGICAL: Denies altered mental status or loss of consciousness. Denies headache. Denies weakness or paralysis or loss of use of either side. Denies problems with gait or speech. Denies sensory or motor loss. ALL OTHER SYSTEMS REVIEWED AND NEGATIVE. Physical Exam - Vital signs Vitals: Temp Pulse Resp BP Pulse Ox 98.9 F 128 H 24 H 106/82 100 11/21/18 22:23 11/21/18 22:23 11/21/18 22:23 11/21/18 22:23 11/21/18 22:23 - Notes Notes: General Appearance: Well nourished, alert, cooperative, no acute distress, no obvious discomfort. Vitals: reviewed, See vital signs table. Head: no swelling or tenderness to the head Eyes: PERRL, EOMI, Conjuctiva clear Mouth: No decreasd moisture Lungs: No wheezing, No rales, No rhonci, No accessory muscle use, good air exchange bilaterally. Heart: Normal rate, Regular rythm, No murmur, no rub Abdomen: Normal BS, soft, No rigidity, mild epigastric abdominal tenderness to palpation. No other areas of tenderness to palpation., No guarding, no rebound, no abdominal masses, no organomegaly Extremities: strength 5/5 in all extremities, good pulses in all extremities, no swelling or tenderness in the extremities, no edema. Skin: warm, dry, appropriate color, no rash Neuro: speech clear, oriented x 3, patient is exhausted appearing. At times she is just a little bit slow to answer questions but always answers every single one of my questions appropriately, Cranial nerves II through XII are intact. Patient able move all 4 extremities on her own. Course - Re-evaluation Re-evalutation: 11/22/18 02:13 Patient continues to have recurrent nausea. She still looks as if she feels very unwell. She does not have any abdominal pain on palpation. Her hCG level is only 1500. I do not think an ultrasound would likely only show a pole at best but likely might not show anything and also she has no pain in her abdo men and therefore ultrasound was not indicated at this time. She has not been able give a stool sample as of yet. She has had 3 L of fluids. She has now made urine. I will place her on maintenance IV fluids. Based on her high neutrophil white blood cell count and exposure to someone overseas I will treat her for travel or associated diarrhea. She is I will place her on azithromycin which is safe in . I spoke with the hospitalist, Dr. Seth, who agrees to evaluate the patient for admission. Dictation of this chart was performed using voice recognition software; there fore, there may be some unintended grammatical errors. - Vital Signs Vital signs: Temp Pulse Resp BP Pulse Ox 99.5 F 128 H 24 H 117/69 95 11/22/18 01:30 11/21/18 22:23 11/22/18 01:01 11/22/18 01:01 11/22/18 01:01 - Laboratory Result Diagrams: 11/21/18 22:45 11/21/18 22:45 Laboratory results interpreted by me: 11/21/18 11/21/18 11/21/18 22:45 22:45 22:45 WBC 17.6 H RBC 5.71 H MCV 66 L MCH 21.2 L RDW 20.0 H Seg Neuts % (Manual) 88 H Lymphocytes % (Manual) 5 L Abs Neuts (Manual) 15.5 H Serum HCG, Qual POSITIVE H Beta HCG, Quant 1538.10 H - EKG Interpretation by Me Additional EKG results interpreted by me: 11/21/18 22:48 EKGs reviewed and interpreted by me. EKG shows sinus tachycardia with a rate of [address] segment elevation or depression. No ischemic T wave inversions. AL interval, QRS duration, QTc intervals are within normal range. Old EKG for comparison is from November 04, 2017. Discharge - Discharge Clinical Impression: Nausea vomiting and diarrhea, Dehydration Qualifiers: Weeks of gestation: unspecified Qualified Code(s): Z34.90 - Encounter for supervision of normal , unspecified, unspecified trimester Condition: Stable Disposition: ADMITTED OBSERVATION Admitting Provider: Hospitalist Unit Admitted: Telemetry
[2018-11-21] MEDS: NORMAL SALINE 1000 ML 1,000 ML IV PRN ×2 (23:00→23:14)
--- NOTE | 2018-11-21 23:00 | EKG REPORT ---
SEVERITY:- ABNORMAL ECG - SINUS TACHYCARDIA NONSPECIFIC REPOL ABNORMALITY, DIFFUSE LEADS : Confirmed by: Juanita Deluna MD 21-Nov-2018 23:00:12
[2018-11-21 23:04] LABS: HEMATOCRIT 37.7 % (36.0-47.0); HEMOGLOBIN 12.1 g/dL (12.0-15.5); MEAN CORPUSCULAR HEMOGLOBIN 21.2 pg (27.0-33.4); MEAN CORPUSCULAR VOLUME 66 fl (80-97); PLATELET COUNT 242 10^3/uL (150-450); RED BLOOD COUNT 5.71 10^6/uL (3.72-5.28); WHITE BLOOD COUNT 17.6 10^3/uL (4.0-10.5)
--- NOTE | 2018-11-21 23:13 | RADIOLOGY REPORT (SQ) ---
CT HEAD WITHOUT IV CONTRAST HISTORY: Syncope. Head trauma. COMPARISON: None. TECHNIQUE: CT scan of the brain without IV contrast. This exam was performed according to our departmental dose-optimization program, which includes automated exposure control, adjustment of the mA and/or kV according to patient size and/or use of iterative reconstruction technique. Motion artifact limits evaluation. FINDINGS: The ventricles, cisterns, and sulci are age-appropriate. No focal white matter lesions are seen. No evidence of acute infarction, intracranial hemorrhage, extra-axial fluid collection, or midline shift. No air-fluid levels are seen in the paranasal sinuses. The calvarium is intact. IMPRESSION: No acute intracranial abnormality.
[2018-11-21 23:16] LABS: ALANINE AMINOTRANSFERASE 20 U/L (9-52); ALKALINE PHOSPHATASE 84 U/L (38-126); ANION GAP 8 (5-19); ASPARTATE AMINO TRANSFERASE 17 U/L (14-36); BILIRUBIN,DIRECT 0.1 mg/dL (0.0-0.4); BILIRUBIN,TOTAL 0.4 mg/dL (0.2-1.3); BLOOD UREA NITROGEN 15 mg/dL (7-20); CALCIUM 9.1 mg/dL (8.4-10.2); CARBON DIOXIDE 27 mmol/L (22-30); CHLORIDE 102 mmol/L (98-107); GLUCOSE 108 mg/dL (75-110); LIPASE 35.6 U/L (23-300); POTASSIUM 4.2 mmol/L (3.6-5.0); SODIUM 137.2 mmol/L (137-145); TOTAL PROTEIN 7.3 g/dL (6.3-8.2)
[2018-11-21 23:24] LABS: ABSOLUTE LYMPHOCYTES# (MANUAL) 0.9 10^3/uL (0.5-4.7); ABSOLUTE MONOCYTES # (MANUAL) 1.1 10^3/uL (0.1-1.4); ABSOLUTE NEUTROPHILS# (MANUAL) 15.5 10^3/uL (1.7-8.2); BASOPHILS % (MANUAL) 0 % (0-2); EOSINOPHILS % (MANUAL) 1 % (0-6); LYMPHOCYTES % (MANUAL) 5 % (13-45); MONOCYTES % (MANUAL) 6 % (3-13); SEGMENTED NEUTROPHILS % (MAN) 88 % (42-78); TOTAL CELLS COUNTED 100
[2018-11-21 23:25] LABS: ANISOCYTOSIS 2+; HYPOCHROMASIA 1+; PLATELET COMMENT ADEQUATE; POIKILOCYTOSIS SLIGHT; TOXIC GRANULATION SLIGHT
[2018-11-22] MEDS ORDERED: RINGERS SOLUTION,LACTATED 1,000 ML IV ONE (00:04)
[2018-11-22] MEDS ORDERED: METOCLOPRAMIDE HCL INJ/PF 10 MG/2 ML SDV IV ONE (01:38)
[2018-11-22] MEDS ORDERED: AZITHROMYCIN INJ 500 MG VIAL IV ONE (02:13)
[2018-11-22] MEDS ORDERED: IPRATROPIUM/ALBUTEROL 0.5-2.5 MG/3 ML AMPUL NEB PRN (02:14)
[2018-11-22] MEDS: METOCLOPRAMIDE HCL INJ/PF 10 MG/2 ML SDV IV PRN ×2 (02:28→22:52)
[2018-11-22] MEDS: NORMAL SALINE 1000 ML 1,000 ML IV PRN ×3 (02:30→10:53)
[2018-11-22 03:41] LABS: URINE AMPHETAMINES SCREEN NEGATIVE; URINE BARBITURATES SCREEN NEGATIVE; URINE BENZODIAZEPINES SCREEN NEGATIVE; URINE COCAINE SCREEN NEGATIVE; URINE MARIJUANA (THC) SCREEN NEGATIVE; URINE METHADONE SCREEN NEGATIVE; URINE PHENCYCLIDINE SCREEN NEGATIVE
--- NOTE | 2018-11-22 04:17 | RADIOLOGY REPORT (SQ) ---
EXAM DESCRIPTION: US TRANSVAGINAL COMPLETED DATE/TME: 11/22/2018 00:00 CLINICAL HISTORY: 28 years Female, N/V/D COMPARISON:11/05/2017 TECHNIQUE: Transvaginal. LIMITATIONS: None. FINDINGS: No definite intrauterine gestation confirmed. There is a 0.2 cm cystic fluid collection within the endometrial cavity which may indicate an early gestational sac. No yolk sac, no pole, no cardiac activity. 3.8 cm right ovary, likely 2 cm right corpus luteal cyst, 2.9 cm left ovary, no free fluid, 3.4 cm cervical length, nabothian cyst. IMPRESSION: No intrauterine confirmed. Differential diagnosis includes early viable intrauterine gestation, gestational loss, and occult ECTOPIC gestation. Recommend 48 -72 hours laboratory/sonographic surveillance.
[2018-11-22] MEDS: HEPARIN SOD (PORCINE) 5,000 UNIT/ML 1 ML SYRINGE SUBCUT SCH ×3 (06:59→22:50)
--- NOTE | 2018-11-22 07:31 | PDOC H&P ---
History of Present Illness Admission Date/PCP: 11/22/18 02:41 Patient complains of: Nausea vomiting diarrhea History of Present Illness: RONNY MEDEIROS is a 28 year old female with past medical history of irregular menses, D&C x3 and ectopic . Presenting with 4 days of abdominal pain nausea vomiting diarrhea. After several episodes of voluminous diarrhea developed blood. Patient admits several ill contacts with similar symptoms but denies suspect meal. In the emergency room the patient is found to have tachycardia, leukocytosis and unexpected by urine hCG. Last menstrual period is believed to be 3 weeks ago, obstetric ultrasound is negative for intrauterine . She is started on azithromycin, symptomatic management and IV fluid challenge. She is referred to the hospitalist for admission. Denying recent antibiotics or new medications. Past Surgical History Past Surgical History: Reports: Section - 2, Tonsillectomy - and adenoids, Other - colonoscopy x 3. "uvula shortened" Social History Information Source: Patient Lives with: Family Smoking Status: Never Smoker Drugs: None - Advance Directive Resuscitation Status: Full Code Family History Family History: CAD, CVA, DM, Hyperlipidemia, Hypertension, Malignancy Parental Family History Reviewed: Yes Children Family History Reviewed: Yes Sibling(s) Family History Reviewed.: Yes Medication/Allergy Allergies/Adverse Reactions: obed Allergy (Verified 11/22/18 01:30) iodine Allergy (Verified 11/22/18 01:30) latex Allergy (Verified 11/22/18 01:30) Review of Systems Constitutional: ABSENT: chills, fever(s), headache(s), weight gain, weight loss Eyes: ABSENT: visual disturbances Ears: ABSENT: hearing changes Cardiovascular: ABSENT: chest pain, dyspnea on exertion, edema, orthropnea, palpitations Respiratory: ABSENT: cough, hemoptysis Gastrointestinal: ABSENT: abdominal pain, constipation, diarrhea, hematemesis, hematochezia, nausea, vomiting Genitourinary: ABSENT: dysuria, hematuria Musculoskeletal: ABSENT: joint swelling Integumentary: ABSENT: rash, wounds Neurological: ABSENT: abnormal gait, abnormal speech, confusion, dizziness, focal weakness, syncope Psychiatric: ABSENT: anxiety, depression, homidical ideation, suicidal ideation Endocrine: ABSENT: cold intolerance, heat intolerance, polydipsia, polyuria Hematologic/Lymphatic: ABSENT: easy bleeding, easy bruising Physical Exam Vital Signs: Temp Pulse Resp BP Pulse Ox 99.4 F 128 H 19 97/61 L 96 11/22/18 02:34 11/21/18 22:23 11/22/18 06:48 11/22/18 06:48 11/22/18 06:48 Intake & Output 11/20/18 11/21/18 11/22/18 11:59 11:59 11:59 Intake Total 3233 Balance 3233 Weight 92.4 kg General appearance: PRESENT: cooperative, mild distress, obese. ABSENT: disheveled Head exam: PRESENT: atraumatic, normocephalic Eye exam: PRESENT: conjunctiva pink, EOMI, PERRLA. ABSENT: scleral icterus Ear exam: PRESENT: normal external ear exam Mouth exam: PRESENT: dry mucosa, tongue midline Neck exam: ABSENT: carotid bruit, JVD, lymphadenopathy, thyromegaly Respiratory exam: PRESENT: clear to auscultation ramone. ABSENT: rales, rhonchi, wheezes Cardiovascular exam: PRESENT: RRR. ABSENT: diastolic murmur, rubs, systolic murmur Pulses: PRESENT: normal dorsalis pedis pul Vascular exam: PRESENT: normal capillary refill GI/Abdominal exam: PRESENT: hyperactive bowel sounds, normal bowel sounds, soft. ABSENT: distended, guarding, mass, organolmegaly, rebound Rectal exam: PRESENT: deferred Extremities exam: PRESENT: full ROM. ABSENT: calf tenderness, clubbing, pedal edema Neurological exam: PRESENT: alert, awake, oriented to person, oriented to place, oriented to time, oriented to situation, CN II-XII grossly intact. ABSENT: motor sensory deficit Psychiatric exam: PRESENT: appropriate affect, normal mood. ABSENT: homicidal ideation, suicidal ideation Skin exam: PRESENT: dry, intact, warm. ABSENT: cyanosis, rash Results Laboratory Results: 11/21/18 22:45 11/21/18 22:45 11/21/18 11/21/18 11/21/18 22:45 22:45 22:45 WBC 17.6 H RBC 5.71 H Hgb 12.1 Hct 37.7 MCV 66 L MCH 21.2 L MCHC 32.0 RDW 20.0 H Plt Count 242 Seg Neutrophils % Not Reportable Lymphocytes % Not Reportable Monocytes % Not Reportable Eosinophils % Not Reportable Basophils % Not Reportable Absolute Neutrophils Not Reportable Absolute Lymphocytes Not Reportable Absolute Monocytes Not Reportable Absolute Eosinophils Not Reportable Absolute Basophils Not Reportable Sodium 137.2 Potassium 4.2 Chloride 102 Carbon Dioxide 27 Anion Gap 8 BUN 15 Creatinine 0.86 Est GFR ( Amer) > 60 Est GFR (Non-Af Amer) > 60 Glucose 108 Lactic Acid Calcium 9.1 Total Bilirubin 0.4 AST 17 ALT 20 Alkaline Phosphatase 84 Total Protein 7.3 Albumin 4.0 Lipase 35.6 Serum HCG, Qual POSITIVE H 11/22/18 00:25 WBC RBC Hgb Hct MCV MCH MCHC RDW Plt Count Seg Neutrophils % Lymphocytes % Monocytes % Eosinophils % Basophils % Absolute Neutrophils Absolute Lymphocytes Absolute Monocytes Absolute Eosinophils Absolute Basophils Sodium Potassium Chloride Carbon Dioxide Anion Gap BUN Creatinine Est GFR ( Amer) Est GFR (Non-Af Amer) Glucose Lactic Acid 1.4 Calcium Total Bilirubin AST ALT Alkaline Phosphatase Total Protein Albumin Lipase Serum HCG, Qual Impressions: Head CT 11/21/18 22:43 IMPRESSION: No acute intracranial abnormality. Obstetrics Ultrasound 11/22/18 00:00 IMPRESSION: No intrauterine confirmed. Differential diagnosis includes early viable intrauterine gestation, gestational loss, and occult ECTOPIC gestation. Recommend 48 -72 hours laboratory/sonographic surveillance. Assessment & Plan - Diagnosis (1) Gastroenteritis Is this a current diagnosis for this admission?: Yes Plan: Azithromycin, IV fluid challenge, electrolyte repletion as needed, symptomatic management (2) Nausea vomiting and diarrhea Is this a current diagnosis for this admission?: Yes Plan: Secondary to #1, symptomatic management (3) Qualifiers: Weeks of gestation: less than 8 weeks Qualified Code(s): Z3A.01 - Less than 8 weeks gestation of Is this a current diagnosis for this admission?: Yes Plan: LEAD MEDICAL TECHNOLOGIST consult - Time Time Spent: 50 to 70 Minutes - Inpatient Certification Medical Necessity: Need Close Monitoring Due to Risk of Patient Decompensation
[2018-11-22] MEDS: DOCUSATE SODIUM 100 MG CAPSULE PO SCH ×2 (10:54→17:41)
[2018-11-22] MEDS: ACETAMINOPHEN 325 MG TABLET PO PRN ×2 (14:25→20:32)
--- NOTE | 2018-11-22 16:19 | PDOC CONSULTATION ---
Consultation Consult Date: 11/22/18 Consult reason:: History of Present Illness Admission Date/PCP: 11/22/18 02:41 Patient complains of: Nausea, vomiting, diarrhea History of Present Illness: RONNY MEDEIROS is a 28 year old female who is admitted to hospitalist service for nausea, vomiting and diarrhea x 3 days. Pt reports that everyone in her home is sick and that the symptoms have been passed from person to person. She was unaware of her current because of irregular menses. She has h/o ectopic s/p laparoscopic treatment and multiple SAbs s/p D&Cs. She denies that her tube was removed with the ectopic. In ER, quant was 1400 and uls showed possible small GS with no significant ovarian findings except for a right corpus luteum. Past Medical History LMP: 10/21/18 Menses: Irregular Obstetrical History: none - Ectopic Multiple SAbs x 2 Medical History: None Cardiac Medical History: Reports: None Pulmonary Medical History: Reports: None Psychiatric Medical History: Denies: Depression Social History Lives with: Family Smoking Status: Never Smoker Frequency of Alcohol Use: None Hx Recreational Drug Use: No Drugs: None Hx Prescription Drug Abuse: No - Advance Directive Resuscitation Status: Full Code Family History Family History: CAD, CVA, DM, Hyperlipidemia, Hypertension, Malignancy Parental Family History Reviewed: No Children Family History Reviewed: No Sibling(s) Family History Reviewed.: No Medication/Allergy Allergies/Adverse Reactions: obed Allergy (Verified 11/22/18 01:30) iodine Allergy (Verified 11/22/18 01:30) latex Allergy (Verified 11/22/18 01:30) Review of Systems Gastrointestinal: ABSENT: abdominal pain Genitourinary: PRESENT: other - no vaginal bleeding Physical Exam - Physical Exam Vital Signs: Temp Pulse Resp BP Pulse Ox 99.1 F 97 18 109/65 99 11/22/18 12:07 11/22/18 12:07 11/22/18 12:07 11/22/18 12:07 11/22/18 12:07 Intake & Output 11/21/18 11/22/18 11/23/18 06:59 06:59 06:59 Intake Total 3233 1433 Balance 3233 1433 Weight 92.4 kg General appearance: PRESENT: no acute distress, cooperative, obese, well-dev eloped, well-nourished Head exam: PRESENT: atraumatic, normocephalic Cardiovascular exam: PRESENT: RRR GI/Abdominal exam: PRESENT: soft, other - nontender, nondistended Result Laboratory Results: 11/21/18 22:45 11/21/18 22:45 11/21/18 11/21/18 11/21/18 22:45 22:45 22:45 WBC 17.6 H RBC 5.71 H Hgb 12.1 Hct 37.7 MCV 66 L MCH 21.2 L MCHC 32.0 RDW 20.0 H Plt Count 242 Seg Neutrophils % Not Reportable Lymphocytes % Not Reportable Monocytes % Not Reportable Eosinophils % Not Reportable Basophils % Not Reportable Absolute Neutrophils Not Reportable Absolute Lymphocytes Not Reportable Absolute Monocytes Not Reportable Absolute Eosinophils Not Reportable Absolute Basophils Not Reportable Sodium 137.2 Potassium 4.2 Chloride 102 Carbon Dioxide 27 Anion Gap 8 BUN 15 Creatinine 0.86 Est GFR ( Amer) > 60 Est GFR (Non-Af Amer) > 60 Glucose 108 Lactic Acid Calcium 9.1 Total Bilirubin 0.4 AST 17 ALT 20 Alkaline Phosphatase 84 Total Protein 7.3 Albumin 4.0 Lipase 35.6 Serum HCG, Qual POSITIVE H 11/22/18 00:25 WBC RBC Hgb Hct MCV MCH MCHC RDW Plt Count Seg Neutrophils % Lymphocytes % Monocytes % Eosinophils % Basophils % Absolute Neutrophils Absolute Lymphocytes Absolute Monocytes Absolute Eosinophils Absolute Basophils Sodium Potassium Chloride Carbon Dioxide Anion Gap BUN Creatinine Est GFR ( Amer) Est GFR (Non-Af Amer) Glucose Lactic Acid 1.4 Calcium Total Bilirubin AST ALT Alkaline Phosphatase Total Protein Albumin Lipase Serum HCG, Qual Impressions: Head CT 11/21/18 22:43 IMPRESSION: No acute intracranial abnormality. Obstetrics Ultrasound 11/22/18 00:00 IMPRESSION: No intrauterine confirmed. Differential diagnosis includes early viable intrauterine gestation, gestational loss, and occult ECTOPIC gestation. Recommend 48 -72 hours laboratory/sonographic surveillance. Status: Image reviewed by me - OB uls reviewed. Small early intrauterine GS measuring 4wks. Assessment & Plan - Diagnosis (1) Qualifiers: Weeks of gestation: less than 8 weeks Qualified Code(s): Z3A.01 - Less than 8 weeks gestation of Is this a current diagnosis for this admission?: Yes Plan: OB uls images reviewed and there appears to be a small intrauterine early GS with surrounding thickening. Quant 1400. Recommend repeat quant in 2 days if patient still admitted. If she is discharged, she will need f/u with [facility] for serial quants and ultrasound in 2 weeks to confirm viability. She has not required antiemetics since admission. Her nausea/vomiting appears to be from a viral gastroenteritis rather than her current . Zofran and/or Phenergan may be used as needed. Imodium may be used and is safe in should she need this for diarrhea. She is on Azithromycin, which is also a safe antibiotic in . Recommend starting vitamins daily. - Time Time Spent: 30 to 50 Minutes Critical Time spent with patient: Less than 15 minutes Medications reviewed and adjusted accordingly: Yes
[2018-11-22] MEDS ORDERED: NORMAL SALINE 1000 ML 1,000 ML IV PRN (17:26)
[2018-11-22] MEDS: PRENATAL VITAMIN W DHA CAPSULE PO SCH (17:46)
[2018-11-22] MEDS ORDERED: AZITHROMYCIN 500 MG in DEXTROSE 5%-WATER 250 ML IV SCH (22:00)
[2018-11-23] MEDS ORDERED: AZITHROMYCIN 500 MG in DEXTROSE 5%-WATER 250 ML IV SCH (02:00)
[2018-11-23 05:21] LABS: ABSOLUTE EOSINOPHILS # (AUTO) 0.1 10^3/uL (0.0-0.6); ABSOLUTE LYMPHOCYTES (AUTO) 1.4 10^3/uL (0.5-4.7); ABSOLUTE MONOCYTES (AUTO) 0.5 10^3/uL (0.1-1.4); ABSOLUTE NEUT (AUTO) 3.5 10^3/uL (1.7-8.2); BASOPHILS % (AUTO) 0.5 % (0-2); EOSINOPHILS % (AUTO) 2.7 % (0-6); HEMATOCRIT 27.8 % (36.0-47.0); LYMPHOCYTES % (AUTO) 24.7 % (13-45); MEAN CORPUSCULAR HEMOGLOBIN 21.4 pg (27.0-33.4); MEAN CORPUSCULAR HGB CONC 32.2 g/dL (32.0-36.0); MEAN CORPUSCULAR VOLUME 66 fl (80-97); MONOCYTES % (AUTO) 8.8 % (3-13); PLATELET COUNT 176 10^3/uL (150-450); RED BLOOD COUNT 4.19 10^6/uL (3.72-5.28); RED CELL DISTRIBUTION WIDTH 19.8 % (11.5-14.0); SEGMENTED NEUTROPHILS % (AUTO) 63.3 % (42-78); TOTAL CELLS COUNTED % (AUTO) 100 %; WHITE BLOOD COUNT 5.5 10^3/uL (4.0-10.5)
[2018-11-23 05:55] LABS: ALANINE AMINOTRANSFERASE 19 U/L (9-52); ALBUMIN 2.5 g/dL (3.5-5.0); ALKALINE PHOSPHATASE 55 U/L (38-126); ANION GAP 6 (5-19); ASPARTATE AMINO TRANSFERASE 14 U/L (14-36); BILIRUBIN,DIRECT 0.1 mg/dL (0.0-0.4); BILIRUBIN,TOTAL 0.1 mg/dL (0.2-1.3); BLOOD UREA NITROGEN 5 mg/dL (7-20); CALCIUM 7.5 mg/dL (8.4-10.2); CARBON DIOXIDE 24 mmol/L (22-30); CHLORIDE 107 mmol/L (98-107); GLUCOSE 86 mg/dL (75-110); POTASSIUM 3.3 mmol/L (3.6-5.0); SODIUM 136.6 mmol/L (137-145)
[2018-11-23 06:07] LABS: HEMOGLOBIN 8.9 g/dL (12.0-15.5)
[2018-11-23] MEDS: HEPARIN SOD (PORCINE) 5,000 UNIT/ML 1 ML SYRINGE SUBCUT SCH (06:31)
--- NOTE | 2018-11-23 09:40 | PDOC DISCHARGE SUMMARY ---
General - Admit/Disc Date/PCP Admission Date/Primary Care Provider: 11/22/18 02:41 Discharge Date: 11/23/18 - Discharge Diagnosis (1) Dehydration Is this a current diagnosis for this admission?: Yes (2) Gastroenteritis Is this a current diagnosis for this admission?: Yes (3) Nausea vomiting and diarrhea Is this a current diagnosis for this admission?: Yes (4) Is this a current diagnosis for this admission?: Yes (5) Intractable vomiting Is this a current diagnosis for this admission?: Yes - Additional Information Resuscitation Status: Full Code History of Present Illness History of Present Illness: RONNY MEDEIROS is a 28 year old female with past medical history of irregular menses, D&C x3 and ectopic . Presenting with 4 days of abdominal pain nausea vomiting diarrhea. After several episodes of voluminous diarrhea developed blood. Patient admits several ill contacts with similar symptoms but denies suspect meal. In the emergency room the patient is found to have tachycardia, leukocytosis and unexpected by urine hCG. Last menstrual period is believed to be 3 weeks ago, obstetric ultrasound is negative for in trauterine . She is started on azithromycin, symptomatic management and IV fluid challenge. She is referred to the hospitalist for admission. Denying recent antibiotics or new medications. Hospital Course Hospital Course: RONNY MEDEIROS is a 28 year old female with past medical history of irregular menses, D&C x3 and ectopic . Presenting with 4 days of abdominal pain nausea vomiting diarrhea. Patient reports this is very similar illness in the family. Patient most probably has viral gastroenteritis. Currently her nausea, vomiting and diarrhea has subsided patient able to eat and hold down. Her initial evaluation shows her hCG is positive but her obstetric ultrasound reported as negative intrauterine by the radiologist. Patient has been evaluated by Dr. Kruse, career development coordinator/teacher who evaluated the obstetric ultra sound and confirmed that there appears to be a small intrauterine early gestational sac with surrounding thickening. Morning I seen patient sitting on recliner she is awake alert and oriented. She does not have any new complaints. Her vital signs are within normal limits. Patient advised her to have a follow-up with [facility]. Physical Exam Vital Signs: Temp Pulse Resp BP Pulse Ox 98.9 F 100 20 106/59 L 96 11/23/18 07:43 11/23/18 07:43 11/23/18 07:43 11/23/18 07:43 11/23/18 07:43 Intake & Output 11/22/18 11/23/18 11/24/18 06:59 06:59 06:59 Intake Total 3233 2000 Output Total 400 Balance 3233 1600 Weight 92.4 kg 94 kg General appearance: PRESENT: no acute distress, well-developed, well-nourished Head exam: PRESENT: atraumatic, normocephalic Eye exam: PRESENT: conjunctiva pink, EOMI, PERRLA. ABSENT: scleral icterus Ear exam: PRESENT: normal external ear exam Mouth exam: PRESENT: moist, tongue midline Neck exam: ABSENT: carotid bruit, JVD, lymphadenopathy, thyromegaly Respiratory exam: PRESENT: clear to auscultation ramone. ABSENT: rales, rhonchi, wheezes Cardiovascular exam: PRESENT: RRR. ABSENT: diastolic murmur, rubs, systolic murmur Pulses: PRESENT: normal dorsalis pedis pul Vascular exam: PRESENT: normal capillary refill GI/Abdominal exam: PRESENT: normal bowel sounds, soft. ABSENT: distended, guarding, mass, organolmegaly, rebound, tenderness Rectal exam: PRESENT: deferred Extremities exam: PRESENT: full ROM. ABSENT: calf tenderness, clubbing, pedal edema Neurological exam: PRESENT: alert, awake, oriented to person, oriented to place, oriented to time, oriented to situation, CN II-XII grossly intact. ABSENT: motor sensory deficit Psychiatric exam: PRESENT: appropriate affect, normal mood. ABSENT: homicidal ideation, suicidal ideation Skin exam: PRESENT: dry, intact, warm. ABSENT: cyanosis, rash Results Laboratory Results: 11/23/18 04:21 11/23/18 04:21 11/23/18 11/23/18 04:21 04:21 WBC 5.5 RBC 4.19 Hgb 8.9 L D Hct 27.8 L MCV 66 L MCH 21.4 L MCHC 32.2 RDW 19.8 H Plt Count 176 Seg Neutrophils % 63.3 Lymphocytes % 24.7 Monocytes % 8.8 Eosinophils % 2.7 Basophils % 0.5 Absolute Neutrophils 3.5 Absolute Lymphocytes 1.4 Absolute Monocytes 0.5 Absolute Eosinophils 0.1 Absolute Basophils 0.0 Sodium 136.6 L Potassium 3.3 L Chloride 107 Carbon Dioxide 24 Anion Gap 6 BUN 5 L Creatinine 0.63 Est GFR ( Amer) > 60 Est GFR (Non-Af Amer) > 60 Glucose 86 Calcium 7.5 L Total Bilirubin 0.1 L AST 14 ALT 19 Alkaline Phosphatase 55 Total Protein 5.0 L Albumin 2.5 L Impressions: Head CT 11/21/18 22:43 IMPRESSION: No acute intracranial abnormality. Obstetrics Ultrasound 11/22/18 00:00 IMPRESSION: No intrauterine confirmed. Differential diagnosis includes early viable intrauterine gestation, gestational loss, and occult ECTOPIC gestation. Recommend 48 -72 hours laboratory/sonographic surveillance. Qualifiers - * PATIENT BEING DISCHARGED WITH ANY OF THE FOLLOWING DIAGNOSIS: No
[2018-11-23] MEDS: PRENATAL VITAMIN W DHA CAPSULE PO SCH (10:45)
[2018-11-23] MEDS: DOCUSATE SODIUM 100 MG CAPSULE PO SCH (10:45)
[2018-11-23 10:55] VITALS: BP 105/52
== END 2018-11-23 11:10 | disposition home or self-care (01) | DRG 833 ==
LOC: ER 21:17 → OBSVTOIN 11-22 02:41 → EH 11-22 02:41 → 3N 11-22 11:57
PROVIDERS: ADMIT Internal Medicine; ATTEND Internal Medicine
DX: O99.611 Diseases of the digestive system complicating pregnancy, first trimester (principal); K52.9 Noninfective gastroenteritis and colitis, unspecified; Z3A.01 Less than 8 weeks gestation of pregnancy; O26.21 Pregnancy care for patient with recurrent pregnancy loss, first trimester; O21.9 Vomiting of pregnancy, unspecified; E86.0 Dehydration
CPT/HCPCS: 36415; 70450; 76817; 80053; 80307; 81025; 83605; 83690; 84702; 84703; 85025; 87040; 93005; 93010; 96361; 96365; 96375; 99285; J0456; J2405; J2765; J7030; J7060; J7120

== ENCOUNTER 2019-04-05 14:08 | Emergency (ER) | payer OTHER ==
[2019-04-05 14:55] LABS: ABSOLUTE BASOPHILS # (AUTO) 0.1 10^3/uL (0.0-0.2); ABSOLUTE LYMPHOCYTES (AUTO) 1.3 10^3/uL (0.5-4.7); ABSOLUTE MONOCYTES (AUTO) 0.6 10^3/uL (0.1-1.4); ABSOLUTE NEUT (AUTO) 9.3 10^3/uL (1.7-8.2); BASOPHILS % (AUTO) 0.6 % (0-2); EOSINOPHILS % (AUTO) 0.4 % (0-6); HEMATOCRIT 32.1 % (36.0-47.0); LYMPHOCYTES % (AUTO) 11.7 % (13-45); MEAN CORPUSCULAR HEMOGLOBIN 20.6 pg (27.0-33.4); MEAN CORPUSCULAR HGB CONC 31.1 g/dL (32.0-36.0); MEAN CORPUSCULAR VOLUME 66 fl (80-97); MONOCYTES % (AUTO) 5.5 % (3-13); PLATELET COUNT 277 10^3/uL (150-450); RED BLOOD COUNT 4.84 10^6/uL (3.72-5.28); SEGMENTED NEUTROPHILS % (AUTO) 81.8 % (42-78); TOTAL CELLS COUNTED % (AUTO) 100 %; WHITE BLOOD COUNT 11.4 10^3/uL (4.0-10.5)
[2019-04-05 15:13] LABS: ALANINE AMINOTRANSFERASE 38 U/L (9-52); ALBUMIN 3.8 g/dL (3.5-5.0); ALKALINE PHOSPHATASE 76 U/L (38-126); ANION GAP 12 (5-19); ASPARTATE AMINO TRANSFERASE 21 U/L (14-36); BILIRUBIN,DIRECT 0.1 mg/dL (0.0-0.4); BILIRUBIN,TOTAL 0.3 mg/dL (0.2-1.3); BLOOD UREA NITROGEN 10 mg/dL (7-20); CALCIUM 9.1 mg/dL (8.4-10.2); CARBON DIOXIDE 23 mmol/L (22-30); CHLORIDE 109 mmol/L (98-107); GLUCOSE 89 mg/dL (75-110); POTASSIUM 4.2 mmol/L (3.6-5.0); SODIUM 144.2 mmol/L (137-145); TOTAL PROTEIN 6.7 g/dL (6.3-8.2)
[2019-04-05 15:17] LABS: ALCOHOL < 10 mg/dL (NONE DETECTED)
[2019-04-05] MEDS ORDERED: ONDANSETRON 4 MG TAB.RAPDIS PO ONE (16:10)
[2019-04-05] MEDS ORDERED: ONDANSETRON HCL INJ/PF 4 MG/2 ML SDV IV ONE (16:10)
[2019-04-05] MEDS ORDERED: HEPATITIS B VIRUS VACCINE-PF 1 ML SYR IM ONE ×2 (16:21→21:00)
[2019-04-05] MEDS ORDERED: PROMETHAZINE HCL 25 MG TABLET PO ONE ×2 (16:21→21:00)
[2019-04-05] MEDS ORDERED: LIDOCAINE 1% INJ-PF (10 MG/ML) 30 ML SDV INJ ONE ×2 (16:21→20:45)
[2019-04-05] MEDS ORDERED: METRONIDAZOLE 500 MG TABLET PO ONE ×2 (16:21→21:00)
[2019-04-05] MEDS ORDERED: CEFTRIAXONE INJ 250 MG VIAL IM ONE ×2 (16:21→21:00)
[2019-04-05] MEDS ORDERED: AZITHROMYCIN 250 MG TABLET PO ONE ×2 (16:21→20:45)
[2019-04-05] MEDS ORDERED: RALTEGRAVIR 400 MG TAB (6 TAB/ER DISP) PO PRN (19:37)
[2019-04-05] MEDS ORDERED: EMTRICITABINE/TENOFOVIR 200-300 MG TAB (3 TAB/ER DISP) PO PRN (19:37)
[2019-04-05 22:02] LABS: APPEARANCE,URINE CLOUDY; BILIRUBIN,URINE NEGATIVE (NEGATIVE); COLOR,URINE YELLOW; GLUCOSE, URINE NEGATIVE (NEGATIVE); KETONES,URINE NEGATIVE (NEGATIVE); LEUKOCYTE ESTERASE,URINE SMALL (NEGATIVE); NITRITE,URINE NEGATIVE (NEGATIVE); PROTEIN,URINE 30 mg/dL (NEGATIVE); URINE SPECIFIC GRAVITY 1.025; UROBILINOGEN,URINE NEGATIVE mg/dL (<2.0)
[2019-04-05 22:11] LABS: URINE AMPHETAMINES SCREEN NEGATIVE; URINE BARBITURATES SCREEN NEGATIVE; URINE BENZODIAZEPINES SCREEN NEGATIVE; URINE COCAINE SCREEN NEGATIVE; URINE MARIJUANA (THC) SCREEN NEGATIVE; URINE METHADONE SCREEN NEGATIVE; URINE PHENCYCLIDINE SCREEN NEGATIVE
--- NOTE | 2019-04-05 22:36 | RADIOLOGY REPORT (SQ) ---
EXAM DESCRIPTION: XR HIP 2 OR MORE VIEWS COMPLETED DATE/TME: 04/05/2019 21:05 CLINICAL HISTORY: 28 years, Female, injury, pain with movement COMPARISON: None. FINDINGS: Single view of the pelvis and lateral view of the left hip. No acute fracture or dislocation. Normal osseous mineralization. No lytic osseous lesions. Bilateral hip joint spaces preserved. IMPRESSION: 1. No acute fracture or dislocation. copyright 2010 [employer]- All Rights Reserved
[2019-04-05 23:19] VITALS: BP 117/69
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
[2019-04-07 10:51] LABS: HEPATITIS A AB IGM Negative (Negative); HEPATITIS B CORE AB IGM Negative (Negative); HEPATITS B SURFACE ANTIGEN Negative (Negative)
[2019-04-07 10:54] LABS: HEPATITIS C VIRUS ANTIBODY <0.1 s/co ratio (0.0-0.9)
== END 2019-04-05 23:21 | disposition home or self-care (01) ==
LOC: ER 14:08
DX: T74.21XA Adult sexual abuse, confirmed, initial encounter (principal); S20.01XA Contusion of right breast, initial encounter; S20.211A Contusion of right front wall of thorax, initial encounter; S50.12XA Contusion of left forearm, initial encounter; S50.11XA Contusion of right forearm, initial encounter; S40.021A Contusion of right upper arm, initial encounter; Y09 Assault by unspecified means; R41.3 Other amnesia; R11.2 Nausea with vomiting, unspecified; R07.9 Chest pain, unspecified; M25.552 Pain in left hip; D72.829 Elevated white blood cell count, unspecified; D64.9 Anemia, unspecified; F41.9 Anxiety disorder, unspecified; Z91.018 Allergy to other foods; Z91.040 Latex allergy status
CPT/HCPCS: 99285; 96372; 96374; 36415; 80307 ×2; 84702; 83735; 85025; 86592; 80053; 81001; 86701; 80074; 73502; J3490 ×2; J2405; J0696